=== PATIENT | female | born 1985 | race Caucasian/White ===

== ENCOUNTER 2016-10-24 21:19 | Emergency (ER) | payer SELFPAY ==
--- NOTE | 2016-10-24 22:08 | ER Document Report ---
ED GI/ - General Chief Complaint: Abdominal Cramping Stated Complaint: CRAMPING Time Seen by Provider: 10/24/16 22:01 Notes: Patient is a 31-year-old female, at 6 weeks gestation by last menstrual period, that comes emergency department for chief complaint of lower pelvic pain /cramping and vaginal spotting which started today. Patient reports current mild cramping. She denies fever, vaginal discharge, dysuria, flank pain. Has no history of , takes no daily medications, has not seen HEEL SLUGGER yet. TRAVEL OUTSIDE OF THE [place] IN LAST 30 DAYS: No - Related Data Allergies/Adverse Reactions: No Known Allergies Allergy (Verified 06/17/13 19:45) Past Medical History - General Information source: Patient - Social History Smoking Status: Never Smoker Frequency of alcohol use: None Drug Abuse: None Lives with: Family Family History: None - Medical History Medical History: Negative Renal/ Medical History: Denies: Hx Peritoneal Dialysis Past Surgical History: Reports: Hx Section, Hx Orthopedic Surgery - repair of right knee - Immunizations Immunizations up to date: Yes Hx Diphtheria, Pertussis, Tetanus Vaccination: Yes Review of Systems - Review of Systems Constitutional: No symptoms reported EENT: No symptoms reported Cardiovascular: No symptoms reported Respiratory: No symptoms reported Gastrointestinal: See HPI Genitourinary: See HPI Female Genitourinary: See HPI Musculoskeletal: No symptoms reported Skin: No symptoms reported Hematologic/Lymphatic: No symptoms reported Neurological/Psychological: No symptoms reported Physical Exam - Vital signs Vitals: Temp Pulse Resp BP Pulse Ox 98.2 F 93 20 121/63 98 10/24/16 21:35 10/24/16 21:35 10/24/16 21:35 10/24/16 21:35 10/24/16 21:35 Interpretation: Normal - General General appearance: Appears well, Alert In distress: None - HEENT Head: Normocephalic, Atraumatic Eyes: Normal Conjunctiva: Normal Extraocular movements intact: Yes Eyelashes: Normal Pupils: PERRL Mouth/Lips: Normal Mucous membranes: Normal Pharynx: Normal Neck: Normal - Respiratory Respiratory status: No respiratory distress Chest status: Nontender Breath sounds: Normal Chest palpation: Normal - Cardiovascular Rhythm: Regular. No: Tachycardia Heart sounds: Normal auscultation, S1 appreciated, S2 appreciated Murmur: No - Abdominal Inspection: Normal Distension: No distension Bowel sounds: Normal Tenderness: Tender - minimal lower abdominal/pelvic tenderness, no guarding - Back Back: Normal, Nontender - Extremities General upper extremity: Normal inspection, Nontender, Normal color, Normal ROM , Normal temperature General lower extremity: Normal inspection, Nontender, Normal color, Normal ROM , Normal temperature, Normal weight bearing. No: Ric's sign - Neurological Neuro grossly intact: Yes Cognition: Normal Orientation: AAOx4 Mcgehee Coma Scale Eye Opening: Spontaneous Connor Coma Scale Verbal: Oriented Mcgehee Coma Scale Motor: Obeys Commands Mcgehee Coma Scale Total: 15 Speech: Normal Motor strength normal: LUE, RUE, LLE, RLE Sensory: Normal - Psychological Associated symptoms: Normal affect, Normal mood - Skin Skin Temperature: Warm Skin Moisture: Dry Skin Color: Normal Course - Re-evaluation Re-evalutation: CBC unremarkable, hCG is elevated appropriately, RhoGam is not indicated. Urinalysis has some contamination but also shows dehydration and some evidence of infection. Patient placed on Keflex for this. Ultrasound shows small subchorionic bleed, living IUP, no other abnormalities other than heart rate which is low at 97. Because of this I did discuss with patient that there is a possibility of miscarriage, this is a threatened , discussed close HEEL SLUGGER follow-up, rest recommendations, hydration and antibiotic recommendations, return precautions with patient and , they state understanding and agreement. Patient provided with a copy of her ultrasound. - Vital Signs Vital signs: Temp Pulse Resp BP Pulse Ox 98.2 F 85 18 128/75 H 99 10/24/16 21:35 10/24/16 23:57 10/24/16 23:57 10/24/16 23:57 10/24/16 23:57 - Laboratory Result Diagrams: 10/24/16 22:25 Laboratory results interpreted by me: 10/24/16 10/24/16 22:25 22:30 Beta HCG, Quant 63645.00 H Urine Protein 30 H Urine Blood LARGE H Urine Urobilinogen 2.0 H Ur Leukocyte Esterase TRACE H Discharge - Discharge Clinical Impression: Vaginal bleeding in patient at less than 20 weeks gestation, Pelvic cramping Condition: Stable Disposition: HOME, SELF-CARE Additional Instructions: Ultrasound shows in the uterus, also shows small subchorionic bleed as we discussed, heart rate is slightly low. Take the antibiotic as prescribed, improve your hydration by drinking plenty of fluids, avoid any significant physical activity including lifting, jumping, running, or sexual intercourse until cleared to do so by HEEL SLUGGER. The heart rate seen on ultrasound is slightly low. Follow up with OBGYN for additional monitoring, but there is possibility of miscarriage. Follow-up with primary care. Return to emergency department for any concerning symptoms including severe pain, heavy bleeding causing lightheadedness, or any concerning symptoms. Prescriptions: Cephalexin Monohydrate [Keflex 500 mg Capsule] 500 mg PO BID #6 capsule Forms: Return to Work Referrals: [facility] [Provider Group] - Follow up in 3-5 days
[2016-10-24 22:45] LABS: ABSOLUTE BASOPHILS # (AUTO) 0.1 10^3/uL (0.0-0.2); ABSOLUTE EOSINOPHILS # (AUTO) 0.1 10^3/uL (0.0-0.6); ABSOLUTE MONOCYTES (AUTO) 0.3 10^3/uL (0.1-1.4); ABSOLUTE NEUT (AUTO) 5.9 10^3/uL (1.7-8.2); BASOPHILS % (AUTO) 0.9 % (0-2); EOSINOPHILS % (AUTO) 1.5 % (0-6); HEMOGLOBIN 12.5 g/dL (12.0-15.5); HGB HCT DIFFERENCE 0.5; LYMPHOCYTES % (AUTO) 23.6 % (13-45); MEAN CORPUSCULAR HEMOGLOBIN 30.9 pg (27.0-33.4); MEAN CORPUSCULAR HGB CONC 33.9 g/dL (32.0-36.0); MEAN CORPUSCULAR VOLUME 91 fl (80-97); MONOCYTES % (AUTO) 4.1 % (3-13); RED BLOOD COUNT 4.06 10^6/uL (3.72-5.28); RED CELL DISTRIBUTION WIDTH 13.8 % (11.5-14.0); SEGMENTED NEUTROPHILS % (AUTO) 69.9 % (42-78); WHITE BLOOD COUNT 8.5 10^3/uL (4.0-10.5)
[2016-10-24 22:57] LABS: APPEARANCE,URINE CLOUDY; BILIRUBIN,URINE NEGATIVE (NEGATIVE); GLUCOSE, URINE NEGATIVE (NEGATIVE); KETONES,URINE NEGATIVE (NEGATIVE); LEUKOCYTE ESTERASE,URINE TRACE (NEGATIVE); NITRITE,URINE NEGATIVE (NEGATIVE); PROTEIN,URINE 30 mg/dL (NEGATIVE); URINE SPECIFIC GRAVITY 1.032
--- NOTE | 2016-10-24 23:21 | RADIOLOGY REPORT (SQ) ---
EXAM DESCRIPTION: U/S OB TRANSVAG W/DOPPLER COMPLETED DATE/TIME: 10/24/2016 11:12 pm REASON FOR STUDY: , bleeding, pelvic pain COMPARISON: None. TECHNIQUE: Transvaginal static and realtime grayscale images acquired of the pelvis. Additional maria r cted spectral and color Doppler images recorded. All images stored on PACs. bHCG: Not available. LIMITATIONS: None. FINDINGS: FETUS: Living intrauterine . EGA: 6 weeks 1 day LIS: 06/18/2017 FHR: 97 beats per minute. SUBCHORIONIC BLEED: Yes SIZE OF BLEED: 1.2 x 1.4 x 0.8 cm UTERUS: No masses. No anomalies. CERVICAL LENGTH: Not measured RIGHT ADNEXA: Normal ovary with normal vascular flow. No adnexal free fluid. No adnexal masses. LEFT ADNEXA: Ovary not identified. No adnexal free fluid. No adnexal masses. FREE FLUID: None. OTHER: No other significant finding. IMPRESSION: LIVING INTRAUTERINE . EGA 6 weeks 1 day Small subchorionic hemorrhage. Trimester of : First - 0 to 13 weeks. TECHNICAL DOCUMENTATION: JOB ID: [id number] [employer]- All Rights Reserved
[2016-10-24] MEDS ORDERED: CEPHALEXIN 500 MG CAPSULE PO ONE (23:44)
[2016-10-24 23:58] VITALS: BP 128/75
== END 2016-10-24 23:57 | disposition home or self-care (01) ==
LOC: ER 21:19
DX: N93.9 Abnormal uterine and vaginal bleeding, unspecified (principal); R10.9 Unspecified abdominal pain; R10.2 Pelvic and perineal pain; Z3A.01 Less than 8 weeks gestation of pregnancy
CPT/HCPCS: 36415; 76817; 81001; 84702; 85025; 86900; 86901; 93976; 99284

== ENCOUNTER 2018-09-01 17:34 | Emergency (ER) | payer SELFPAY ==
--- NOTE | 2018-09-01 19:11 | ER Document Report ---
ED Medical Screen (RME) - General Chief Complaint: Headache Stated Complaint: HEADACHE Time Seen by Provider: 09/01/18 19:06 Mode of Arrival: Ambulatory Information source: Patient Notes: 33-year-old female presented to ED for severe headache to the right side. She states that about a month ago she had her vision decreased on the right side and it came back. She states yesterday she had her vision coming and going and then today her vision is been fussy all day. She went to the [place] provider and they sent her to the emergency room. She states she does not have any medical history of anything except for a skull fracture a and a knee scope. She is alert oriented respirations regular and unlabored speaking in full sentences walks with a even steady gait. She does have severe pain behind the right eye. I have greeted and performed a rapid initial assessment of this patient. A comprehensive ED assessment and evaluation of the patient, analysis of test results and completion of medical decision making process will be conducted by an additional ED providers. TRAVEL OUTSIDE OF THE [place] IN LAST 30 DAYS: No - Related Data Allergies/Adverse Reactions: No Known Allergies Allergy (Verified 09/01/18 17:37) Past Medical History - Social History Frequency of alcohol use: Occasional Drug Abuse: None Renal/ Medical History: Denies: Hx Peritoneal Dialysis Past Surgical History: Reports: Hx Section, Hx Orthopedic Surgery - repair of right knee - Immunizations Immunizations up to date: Yes Hx Diphtheria, Pertussis, Tetanus Vaccination: Yes Physical Exam - Vital signs Vitals: Temp Pulse Resp BP Pulse Ox 98.1 F 81 16 142/89 H 100 09/01/18 17:45 09/01/18 17:45 09/01/18 17:45 09/01/18 17:45 09/01/18 17:45 Course - Vital Signs Vital signs: Temp Pulse Resp BP Pulse Ox 98.1 F 81 16 142/89 H 100 09/01/18 17:45 09/01/18 17:45 09/01/18 17:45 09/01/18 17:45 09/01/18 17:45
--- NOTE | 2018-09-01 19:36 | RADIOLOGY REPORT (SQ) ---
EXAM DESCRIPTION: CT HEAD WITHOUT COMPLETED DATE/TIME: 09/01/2018 7:21 pm REASON FOR STUDY: Severe headache right side with decreased vision o COMPARISON: None. TECHNIQUE: Axial images acquired through the brain without intravenous contrast. Images reviewed wi th bone, brain and subdural windows. Additional sagittal and coronal reconstructions were generated. Images stored on PACS. All CT scanners at this facility use dose modulation, iterative reconstruction, and/or weight based d osing when appropriate to reduce radiation dose to as low as reasonably achievable (ALARA). [facility]: Dose Right [facility]: CareDose [facility]: Dose Right [facility]: Teradose 4D [facility]: Smart Lean [employer] Machine RADIATION DOSE: CT Rad equipment meets quality standard of care and radiation dose reduction techniq ues were employed. CTDIvol: 53.2 mGy. DLP: 1017 mGy-cm. mGy. LIMITATIONS: None. FINDINGS: VENTRICLES: Normal size and contour. CEREBRUM: No masses. No hemorrhage. No midline shift. No evidence for acute infarction. Normal gra y/white matter differentiation. No areas of low density in the white matter. CEREBELLUM: No masses. No hemorrhage. No alteration of density. No evidence for acute infarction. EXTRAAXIAL SPACES: No fluid collections. No masses. ORBITS AND GLOBE: No intra- or extraconal masses. Normal contour of globe without masses. CALVARIUM: No fracture. PARANASAL SINUSES: No fluid or mucosal thickening. SOFT TISSUES: No mass or hematoma. OTHER: No other significant finding. IMPRESSION: NORMAL BRAIN CT WITHOUT CONTRAST. EVIDENCE OF ACUTE STROKE: NO. COMMENT: Quality ID # [id number]: Final reports with documentation of one or more dose reduction techniques (e.g., Automated exposure control, adjustment of the mA and/or kV according to patient size, use of iterative reconstruction technique) TECHNICAL DOCUMENTATION: JOB ID: [id number] [employer]- All Rights Reserved Reading location - IP/workstation name: [email or web address]
[2018-09-01] MEDS ORDERED: NORMAL SALINE 1000 ML 1,000 ML IV ONE (22:27)
[2018-09-01] MEDS ORDERED: DIPHENHYDRAMINE HCL 50 MG/ML VIAL IV ONE (22:28)
[2018-09-01] MEDS ORDERED: METOCLOPRAMIDE HCL INJ/PF 10 MG/2 ML SDV IV ONE (22:28)
[2018-09-01 23:08] VITALS: BP 118/87
--- NOTE | 2018-09-02 | ER Document Report ---
ED General - General Chief Complaint: Headache Stated Complaint: HEADACHE Time Seen by Provider: 09/01/18 19:06 Primary Care Provider: ZEUS LOCO MD [ACTIVE STAFF] - Follow up tomorrow Mode of Arrival: Ambulatory Notes: Patient is a pleasant 33-year-old female who presents with complaint of headache. Headache is on the right side of her head behind her right eye. She says over the last several days she has had this intermittent headache. Sometimes with a headache she will get some blurred vision in the right eye. Currently her vision is normal however she says that her headache is worsened and this time it is not going away and therefore she came to the ER. She denies any trauma or injuries to her head. Headache is gradual in onset. No recent fevers or infections. No focal weakness or numbness. No other complaints at this time. TRAVEL OUTSIDE OF THE [place] IN LAST 30 DAYS: No - Related Data Allergies/Adverse Reactions: No Known Allergies Allergy (Verified 09/01/18 17:37) Past Medical History - General Information source: Patient - Social History Smoking Status: Never Smoker Frequency of alcohol use: Occasional Drug Abuse: None Family History: None Patient has suicidal ideation: No Patient has homicidal ideation: No Renal/ Medical History: Denies: Hx Peritoneal Dialysis Past Surgical History: Reports: Hx Section, Hx Orthopedic Surgery - repair of right knee - Immunizations Immunizations up to date: Yes Hx Diphtheria, Pertussis, Tetanus Vaccination: Yes Review of Systems - Review of Systems Notes: My Normal Review Basic REVIEW OF SYSTEMS: CONSTITUTIONAL : Denies fever, chills, or sweats. Denies recent illness. EENT: Denies ear, throat, or mouth pain or symptoms. Denies nasal or sinus congestion. RESPIRATORY: Denies cough, cold, or chest congestion. Denies shortness of breath, difficulty breathing, or wheezing. GASTROINTESTINAL: Denies abdominal pain. Denies nausea, vomiting, or diarrhea. Denies constipation. Last BM: MUSCULOSKELETAL: Denies neck or back pain or joint pain or swelling. SKIN: Denies rash or skin lesions. NEUROLOGICAL: Denies altered mental status or loss of consciousness. Has a headache. Denies weakness or paralysis or loss of use of either side. Denies problems with gait or speech. Denies sensory or motor loss. ALL OTHER SYSTEMS REVIEWED AND NEGATIVE. Physical Exam - Vital signs Vitals: Temp Pulse Resp BP Pulse Ox 98.1 F 81 16 142/89 H 100 09/01/18 17:45 09/01/18 17:45 09/01/18 17:45 09/01/18 17:45 09/01/18 17:45 - Notes Notes: General Appearance: Well nourished, alert, cooperative, no acute distress, mild obvious discomfort. Vitals: reviewed, See vital signs table. Head: no swelling or tenderness to the head Eyes: PERRL, EOMI, Conjuctiva clear. Normal extraocular motion without pain. Ramos-Pen pressure of the right eye is a 5 measure average of 18. Second 5 measure average was 19. Bedside ultrasound the eyes shows no evidence of vitreous or retinal detachment. Mouth: No decreasd moisture Throat: No tonsillar inflammation, No airway obstruction, No lymphadenopathy Neck: Supple, no neck tenderness, No swelling Lungs: No wheezing, No rales, No rhonci, No accessory muscle use, good air exchange bilaterally. Heart: Normal rate, Regular rythm, No murmur, no rub Extremities: strength 5/5 in all extremities, good pulses in all extremities, no edema. Skin: warm, dry, appropriate color, no rash Neuro: speech clear, oriented x 3, normal affect, responds appropriately to questions. Renal nerves II through XII are intact. Distal sensation intact. Patient moves all extremities without difficulty. Normal gait. Normal Romberg. - HEENT Visual acuity- Right eye: 20/30 Visual acuity- Left eye: 20/30 Visual acuity- Both eyes: 20/30 Corrective lenses worn: No Course - Re-evaluation Re-evalutation: 09/02/18 00:00 Patient's headache is improved. She looks well. I suspect that the intermittent blurred vision and headache is related to migraine. Headache is not sudden onset or maximal in onset. She has no neurologic deficits. I do not suspect subarachnoid hemorrhage at this time. CT scan was ordered in triage and is negative. Her intraocular pressures are normal. I do not see any evidence of injury to the posterior aspect of the eye. Based on negative ultrasound I do not suspect vitreous detachment or retinal detachment. These would also be rare and the fact that the patient has a headache as these are usually painless. I will some of the patient follow-up with [facility]ht[facility] for further evaluation of her eye. Currently her vision is normal. Informed to follow-up with mask design engineer have them to do further thorough check with her eye to make sure is nothing further concerning. I encouraged her return to ER immediately if she has fevers, vomiting, recurrent worsening headache, headache not respond to Reglan, or she feels unwell. Patient agrees with plan and will be discharged home. Dictation of this chart was performed using voice recognition software; therefore, there may be some unintended grammatical errors. - Vital Signs Vital signs: Temp Pulse Resp BP Pulse Ox 98.5 F 91 16 118/87 H 100 09/01/18 23:00 09/01/18 23:00 09/01/18 23:00 09/01/18 23:00 09/01/18 23:00 Discharge - Discharge Clinical Impression: Blurred vision Headache Qualifiers: Headache type: unspecified Headache chronicity pattern: episodic headache Intractability: not intractable Qualified Code(s): R51 - Headache Disposition: HOME, SELF-CARE Additional Instructions: I suspect that her intermittent blurred vision and headache is related to migraine. I have given you a medicine here today to help. I will prescribe the medicine for you to take at home as needed. The medicine is called Reglan. It may make you little bit sleepy so please do not drive after taking it. Please follow-up with the eye doctor, Dr. Loco, to reevaluate you to make sure that he does not see any concerning findings on your exam. Call his office in the morning to make a close follow-up appointment. Please return to ER immediately if you have intractable pain, loss of vision, fevers, vomiting, or feel that you are worsening in any way. Prescriptions: Metoclopramide HCl [Reglan 10 mg Tablet] 1 tab PO ASDIR PRN #25 tablet PRN Reason: Referrals: ZEUS LOCO MD [ACTIVE STAFF] - Follow up tomorrow
== END 2018-09-02 00:23 | disposition home or self-care (01) ==
LOC: ER 17:34
DX: R51 Headache (principal); H53.8 Other visual disturbances
CPT/HCPCS: 99284; 96374; 96375; 70450; J1200; J2765; J7030